=== PATIENT | male | born 1955 | race Caucasian/White ===

== ENCOUNTER → 2019-03-11 | Outpatient (CLI) | payer MEDICARE ==
--- NOTE | 2019-03-11 14:44 | US ---
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 Patient's skin is red in front of and under right ear. The area of redness was scanned around right ear. This is in the area of parotid gland. There are sev eral nodes noted. There is no abscess or fluid collection noted . Soft tissue swelling noted. IMPRESSION: There are small multiple lymph nodes measuring a short axis under a centimeter. Diffuse soft tissue swelling noted. Correlate for cellulitis.
== END | disposition home or self-care (01) ==
LOC: RADUSWWP 13:21
PROVIDERS: ATTEND Family Medicine
DX: M79.89 Other specified soft tissue disorders (principal)
CPT/HCPCS: 76536

== ENCOUNTER 2020-10-23 06:52 | Day surgery (SDC) | payer MEDICARE ==
[2020-10-21 11:34] VITALS: BMI 32.3
[~2020-10-23 06:52] MED LIST: LACTATED RINGERS 1,000 ML IV SCH; LIDOCAINE 1% (10MG/ML) FOR IV START INTRADERMA PRN
[2020-10-23 07:30] VITALS: RESP 16; TEMP 97.2
[2020-10-23 07:42] LABS: Glucose,Whole Blood 102 mg/dL (75-99)
[2020-10-23] MEDS ORDERED: MIDAZOLAM 2 MG/2 ML VIAL ONE (07:59)
[2020-10-23] MEDS ORDERED: PROPOFOL 10 MG/ML 20 ML VIAL IV ONE (07:59)
--- NOTE | 2020-10-23 08:16 | P.PCN ---
Date of Procedure: 10/23/20 Procedure(s) Performed: BRIEF HISTORY: Patient is a 65 year-old pleasant white male scheduled for an elective colonoscopy as a part of evaluation of chronic diarrhea for the last several months duration. He has 4-5 loose watery bowel movements with rectal urgency. PROCEDURE PERFORMED: Colonoscopy with random biopsy. PREOPERATIVE DIAGNOSIS: Chronic diarrhea of several months duration. IV sedation per Anesthesia. PROCEDURE: After informed consent was obtained, the patient, was brought into the endoscopy unit. IV sedation was administered by Anesthesia under continuous monitoring. Digital rectal examination was normal. Initially the Olympus CF-160 flexible video colonoscope was then inserted in the rectum, gradually advanced into the cecum without any difficulty. Careful examination was performed as the scope was gradually being withdrawn. Ileocecal valve and the appendiceal orifice were visualized and appeared normal. Prep was excellent. Mucosa of the cecum, ascending colon, transverse colon, descending colon, sigmoid colon, and rectum appeared normal. The sigmoid: There was a 3 mm polyp that was removed by cold biopsy. Scattered sigmoid diverticulosis seen. Random biopsies were done from ascending and descending colon to rule out microscopic/collagenous colitis Retroflexion was performed in the rectum and no lesions were seen. The patient tolerated the procedure well. IMPRESSION: 3 mm sigmoid; polyp status post biopsy Scattered sigmoid diverticulosis RECOMMENDATIONS: Findings of this examination were discussed with the patient as well as his family. He was advised to follow with the biopsy results. He will be given a trial of Bentyl 10 mg 3 times daily and will be seen back in office in 6 weeks.
[2020-10-23 08:38] VITALS: BP 143/81; PULSE 64
== END 2020-10-23 09:15 | disposition home or self-care (01) ==
LOC: ORWHC2ENDO 06:52
PROVIDERS: ATTEND Internal Medicine Gastroenterology
DX: K52.9 Noninfective gastroenteritis and colitis, unspecified (principal); K57.90 Diverticulosis of intestine, part unspecified, without perforation or abscess without bleeding; K63.5 Polyp of colon; I10 Essential (primary) hypertension; M19.90 Unspecified osteoarthritis, unspecified site; E11.9 Type 2 diabetes mellitus without complications; Z79.899 Other long term (current) drug therapy; Z79.84 Long term (current) use of oral hypoglycemic drugs
CPT/HCPCS: 88305; 45380; J2250; J2704

== ENCOUNTER → 2020-12-02 | Outpatient (CLI) | payer MEDICARE ==
[2020-12-02 18:18] LABS: Basophils % (A) 0.9 %; Eosinophils # (A) 0.36 X 10*3/uL (0.04-0.35); Eosinophils % (A) 3.1 %; HCT 45.8 % (39.6-50.0); HGB 15.8 g/dL (13.0-17.0); Lymphocytes # (A) 4.62 X 10*3/uL (0.90-5.00); Lymphocytes % (A) 39.9 %; MCH 29.2 pg (27.0-32.0); MCHC 34.5 g/dL (32.0-37.0); MCV 84.7 fL (80.0-97.0); Mean Platelet Volume 11.1 fL (9.5-12.2); Monocytes # (A) 0.88 X 10*3/uL (0.20-1.00); Monocytes % (A) 7.6 %; Neutrophils # (A) 5.58 X 10*3/uL (1.80-7.70); Neutrophils % (A) 48.2 %; Platelet Count 243 X 10*3/uL (140-440); RBC 5.41 X 10*6/uL (4.40-5.60); RDW 13.8 % (11.5-14.5); WBC 11.58 X 10*3/uL (4.50-10.00)
[2020-12-02 20:32] LABS: Gliadin AB IgA, Deaminated NEGATIVE (NEGATIVE); Gliadin AB IgA, Unit 0.4 U/mL; Gliadin AB IgG, Deaminated NEGATIVE (NEGATIVE)
[2020-12-02 22:53] LABS: ALT 84 U/L (10-49); AST 43 U/L (14-35); African American GFR (CKD) 107.1 (60.0-200.0); Albumin/Globulin Ratio 1.77 (1.60-3.17); Alkaline Phosphatase 91 U/L (41-126); C Reactive Protein <0.4 mg/dL (0.0-0.8); Calcium 9.4 mg/dL (8.7-10.3); Carbon Dioxide 26.3 mmol/L (21.6-31.8); Chloride 109 mmol/L (96-109); Globulin 2.6 g/dL (1.6-3.3); Glucose 140 mg/dL (70-110); Non-African American GFR(CKD) 92.4 (60.0-200.0); Potassium 3.7 mmol/L (3.5-5.5); Sodium 143 mmol/L (135-145); Total Bilirubin 0.6 mg/dL (0.3-1.2); Total Protein 7.2 g/dL (6.2-8.2)
== END | disposition home or self-care (01) ==
LOC: LABWHC1 13:36
PROVIDERS: ATTEND Internal Medicine Gastroenterology
DX: K52.9 Noninfective gastroenteritis and colitis, unspecified (principal)
CPT/HCPCS: 36415; 80053; 83516; 85025; 86140

== ENCOUNTER → 2022-03-28 | Outpatient (CLI) | payer MEDICARE ==
[2022-03-28 14:55] LABS: African American GFR (CKD) 101.7 (60.0-200.0); Blood Urea Nitrogen 13.5 mg/dL (9.0-27.0); Non-African American GFR(CKD) 87.8 (60.0-200.0)
[2022-03-29 09:46] LABS: Angiotensin-1 Converting Enz. 18 U/L (8-52)
[2022-03-29 13:39] LABS: C-ANCA <1:20 Titer (<1:20)
== END | disposition home or self-care (01) ==
LOC: LABWHC1 08:14
PROVIDERS: ATTEND Otolaryngology Facial Plastic Surgery
DX: K12.1 Other forms of stomatitis (principal); R13.10 Dysphagia, unspecified
CPT/HCPCS: 36415; 82164; 82565; 84520; 86038; 86235; 86255

== ENCOUNTER → 2022-03-30 | Outpatient (CLI) | payer MEDICARE ==
--- NOTE | 2022-03-30 09:26 | CT ---
EXAMINATION TYPE: CT soft tissue neck w con DATE OF EXAM: 03/30/2022 COMPARISON: HISTORY: Dysphagia CT DLP: 602 mGycm CONTRAST: CT scan of the neck is performed with IV Contrast, patient injected with 70 mL of Isovue 300. Contrast enhanced CT of the neck was performed from the skull base through the lung apices. AIRWAY: The supraglottic, glottic, and subglottic portions of the airway appear patent and free of mass. SALIVARY GLANDS: The submandibular and parotid glands are free of mass or inflammatory process. THYROID GLAND: No nodules or masses seen. LYMPH NODES: No adenopathy seen greater than 1cm. LUNG APICES: No nodule or mass is seen. OTHER: Vascular structures are patent. No significant degenerative change of the cervical spine. N o abscess seen. IMPRESSION: No discrete abnormality appreciated at this time.
--- NOTE | 2022-03-30 10:48 | FL ---
ESOPHOGRAM. HISTORY: Dysphagia Esophagram was performed per the air contrast technique. The patient swallowed barium and effervesce nt crystals without difficulty or delay. Esophageal peristalsis and motility appear to be within normal limits. There is no evidence for filling defect, mass or diverticulum. No hiatal hernia seen. Subsequently single contrast cervical esophagram was performed which fails demonstrate evidence for a spiration penetration or mass. IMPRESSION: Unremarkable study.
== END | disposition home or self-care (01) ==
LOC: RADCTMAIN 08:02
PROVIDERS: ATTEND Otolaryngology Facial Plastic Surgery
DX: R13.10 Dysphagia, unspecified (principal)
CPT/HCPCS: 74220; 70491; Q9967

== ENCOUNTER → 2022-04-04 | Outpatient (CLI) | payer MEDICARE ==
--- NOTE | 2022-04-04 13:21 | FL ---
EXAMINATION TYPE: FL barium swallow w video DATE OF EXAM: 04/04/2022 MODIFIED SWALLOW / DEGLUTITION STUDY CLINICAL HISTORY: Dysphagia. TECHNIQUE: Deglutition study is performed utilizing thin liquid barium, honey and nectar thick liqui d barium, and barium thick pudding. 38 seconds of fluoro time and 0 images obtained. COMPARISON: Prior esophagram March 30, 2022. FINDINGS: The oral and pharyngeal phases show satisfactory initiation and propagation with all modali ties tested. There is no evidence of penetration or aspiration with any modality tested. No signif icant pharyngeal residue was appreciated. IMPRESSION: No penetration or aspiration. Please refer to speech therapist notes for further details if necessary.
== END | disposition home or self-care (01) ==
LOC: RADFLMAIN 10:34
PROVIDERS: ATTEND Otolaryngology Facial Plastic Surgery
DX: R13.10 Dysphagia, unspecified (principal)
CPT/HCPCS: 74230